=== PATIENT | male | born 1945 | race African-American/Black ===

== ENCOUNTER 2019-02-08 19:03 | Emergency (ER) | payer MEDICARE, MEDICAID ==
[~2019-02-08] VITALS: Ht 185.4 cm; Wt 100.0 kg
[~2019-02-08 19:03] MED LIST: CIPR-213 PO; CLON0.2T PO; ENAL20TA PO; LISI10TA5 PO; METH10OR11 PO; PANT40TA4 PO
[2019-02-08 21:33] VITALS: BP 174/90
== END 2019-02-08 21:37 | disposition home or self-care (01) ==
LOC: ER 19:03
DX: R51 Headache (principal); R10.9 Unspecified abdominal pain; R42 Dizziness and giddiness; I10 Essential (primary) hypertension; R53.83 Other fatigue; Z87.440 Personal history of urinary (tract) infections; Z79.899 Other long term (current) drug therapy
CPT/HCPCS: 99281

== ENCOUNTER 2019-06-06 17:53 | Emergency (ER) | payer MEDICARE, MEDICAID | END 2019-06-06 19:08 | disposition left against medical advice (07) | LOC: ER 17:53 | DX: Z53.21 Procedure and treatment not carried out due to patient leaving prior to being seen by health care provider (principal) ==

== ENCOUNTER 2019-11-07 09:54 | Emergency (ER) | payer MEDICARE, MEDICAID ==
[~2019-11-07] VITALS: Ht 188 cm; Wt 90.0 kg
[2019-11-07] MEDS ORDERED: IBUPROFEN 800MG TABLET PO ONE (12:30)
[2019-11-07] MEDS ORDERED: LIDOCAINE HCL 1% 20ML VIAL (Pyxis) INJ INFIL ONE (12:30)
[2019-11-07] MEDS ORDERED: ACETAMINOPHEN 500MG TABLET PO ONE (12:30)
[2019-11-07] MEDS ORDERED: TETANUS, DIPHTHERIA, PERTUSSIS VAC/PF 0.5ML (>7YR OLD) IM ONE (13:15)
[2019-11-07 13:34] VITALS: BP 117/74
== END 2019-11-07 13:35 | disposition home or self-care (01) ==
LOC: ER 09:54
DX: S91.205A Unspecified open wound of left lesser toe(s) with damage to nail, initial encounter (principal); G62.9 Polyneuropathy, unspecified; X58.XXXA Exposure to other specified factors, initial encounter; Y93.89 Activity, other specified; Y92.89 Other specified places as the place of occurrence of the external cause; Y99.8 Other external cause status; I10 Essential (primary) hypertension; Z87.440 Personal history of urinary (tract) infections; Z79.899 Other long term (current) drug therapy
CPT/HCPCS: 11730; 73660; 90471; 90715; 99284; J3490; 99283

== ENCOUNTER 2020-12-11 16:49 | Emergency (ER) | payer MEDICARE, MEDICAID ==
[~2020-12-11] VITALS: Ht 185.4 cm; Wt 100.0 kg
[~2020-12-11 16:49] MED LIST changes: -CIPR-213 PO; +CIPR500T5 PO; -ENAL20TA PO; +ENAL20TA18 PO; +LISI10TA26 PO; -LISI10TA5 PO; -PANT40TA4 PO; +PANT40TA51 PO
[2020-12-11] MEDS ORDERED: KETOROLAC 30MG/ML VIAL IV ONE (18:15)
[2020-12-11] MEDS ORDERED: MORPHINE SULFATE 4 MG/ML CPJ (NOT FOR IM USE) IV ONE ×2 (18:15→19:45)
[2020-12-11 18:42] LABS: BASOPHILS % 0.7 % (0.0-2.0); EOSINOPHILS % 0.5 % (0.0-5.0); HEMATOCRIT. 38.2 % (42.0-52.0); HEMOGLOBIN. 13.4 g/dL (14.0-18.0); LYMPHOCYTES % 11.9 % (20.0-50.0); MEAN CORPUSCULAR HEMOGLOBIN 31.2 pg (28.0-32.0); MEAN CORPUSCULAR VOLUME 88.8 fL (80.0-94.0); MEAN PLATELET VOLUME 7.2 fl (7.4-10.4); MONOCYTES % 9.5 % (2.0-8.0); NEUTROPHILS % 77.4 % (40.0-76.0); PLATELET 314 x1000/uL (130-400); RED CELL DISTRIBUTION WIDTH 12.9 % (11.6-14.6)
[2020-12-11 18:46] LABS: CHLORIDE 105 mEq/L (98-107)
[2020-12-11] MEDS ORDERED: PREG50CA MT ×2 (19:42→19:44)
[2020-12-11 20:35] VITALS: BP 151/74
== END 2020-12-11 20:56 | disposition home or self-care (01) ==
LOC: ER 17:41
DX: M79.605 Pain in left leg (principal); M79.604 Pain in right leg; R07.89 Other chest pain; I10 Essential (primary) hypertension
CPT/HCPCS: 36415; 71045; 80053; 83880; 84484; 85025; 93005; 93970; 96374; 96375; 96376; 99285; J1885; J2270

== ENCOUNTER 2021-07-03 15:27 | Inpatient (IN) | payer MEDICARE, MEDICAID ==
[~2021-07-03] VITALS: Ht 185.4 cm; Wt 99.8 kg
[~2021-07-03 15:27] MED LIST changes: +PREG50CA MT
[2021-07-03 16:21] LABS: BASOPHILS % 0.3 % (0.0-2.0); EOSINOPHILS % 0.5 % (0.0-5.0); HEMATOCRIT. 36.5 % (42.0-52.0); HEMOGLOBIN. 12.9 g/dL (14.0-18.0); LYMPHOCYTES % 13.7 % (20.0-50.0); MEAN CORPUSCULAR HEMOGLOBIN 30.1 pg (28.0-32.0); MEAN CORPUSCULAR VOLUME 85.4 fL (80.0-94.0); MEAN PLATELET VOLUME 7.3 fl (7.4-10.4); MONOCYTES % 14.1 % (2.0-8.0); NEUTROPHILS % 71.4 % (40.0-76.0); PLATELET 247 x1000/uL (130-400); RED BLOOD CELL COUNT 4.28 mill/uL (4.7-6.1); RED CELL DISTRIBUTION WIDTH 13.2 % (11.6-14.6)
[2021-07-03 16:25] LABS: CHLORIDE 104 mEq/L (98-107)
[2021-07-03] MEDS ORDERED: NITROGLYCERIN 0.4MG TABLET SL SL PRN (19:15)
[2021-07-03] MEDS ORDERED: CEFTRIAXONE 1 G PREMIX 50 ML IV ONE (19:15)
[2021-07-03] MEDS ORDERED: SULFAMETHOXAZOLE/TRIMETHOPRIM 800/160MG TABLET PO ONE (19:15)
[2021-07-03] MEDS ORDERED: ASPIRIN 81MG TABLET PO ONE (19:15)
[2021-07-03 19:38] LABS: CLARITY URINE CLOUDY (CLEAR); COLOR URINE YELLOW (YELLOW); KETONES URINE NEGATIVE (NEGATIVE); LEUKOCYTE ESTERASE URINE 3+ (NEGATIVE); NITRITE URINE NEGATIVE (NEGATIVE); OCCULT BLOOD URINE NEGATIVE (NEGATIVE); PH URINE 6.5 (4.5-8.0); PROTEIN URINE NEGATIVE (NEGATIVE); SPECIFIC GRAVITY URINE 1.015 (1.005-1.030)
[2021-07-03] MEDS ORDERED: SODIUM CHLORIDE 0.9% 1,000 ML IV ONE (21:15)
[2021-07-03] MEDS ORDERED: ONDANSETRON HCL 4MG/2ML INJ IV STA (21:24)
[2021-07-03] MEDS ORDERED: MORPHINE SULFATE 4 MG/ML CPJ (NOT FOR IM USE) IV STA (21:24)
[2021-07-03] MEDS ORDERED: CLONIDINE 0.2MG TABLET PO ONE (21:30)
[2021-07-03] MEDS ORDERED: IOHEXOL-350 100 ML BOTTLE ONE (23:30)
[2021-07-04] MEDS ORDERED: ENOXAPARIN 100MG/ML SYR SUBCUT ONE
[2021-07-04] MEDS ORDERED: CLONIDINE 0.1MG TABLET PO ONE (07:00)
[2021-07-04] MEDS ORDERED: ACETAMINOPHEN 325MG TABLET PO ONE (07:00)
[2021-07-04] MEDS ORDERED: ZOLPIDEM TARTRATE 5MG TABLET PO PRN (07:15)
[2021-07-04] MEDS ORDERED: ACETAMINOPHEN 325MG TABLET PO PRN (07:15)
[2021-07-04] MEDS ORDERED: HYDROMORPHONE HCL/PF 2MG/ML CPJ IV PRN (07:15)
[2021-07-04] MEDS ORDERED: ONDANSETRON HCL 4MG/2ML INJ IV PRN (07:15)
[2021-07-04] MEDS: PANTOPRAZOLE 40MG DR TABLET PO SCH (08:39)
[2021-07-04 09:00] VITALS: BP 131/78
[2021-07-04] MEDS: CLONIDINE 0.2MG TABLET PO SCH ×2 (09:00→21:00)
[2021-07-04] MEDS: PREGABALIN 50 MG CAPSULE PO SCH ×3 (09:50→17:26)
[2021-07-04] MEDS: METHADONE HCL 10MG TABLET PO SCH (09:51)
[2021-07-04] MEDS: LISINOPRIL 40MG TABLET PO SCH (09:52)
[2021-07-04 11:21] VITALS: BP 131/78
[2021-07-04 12:00] VITALS: BP 113/69
[2021-07-04] MEDS: DOCUSATE SODIUM 100MG CAPSULE PO PRN ×2 (12:38→17:31)
[2021-07-04] MEDS: CEPHALEXIN 250MG CAPSULE PO SCH ×3 (12:51→23:48)
[2021-07-04 16:00] VITALS: BP 111/62
[2021-07-04 20:00] VITALS: BP 126/58
[2021-07-04] MEDS ORDERED: ENOXAPARIN 40MG/0.4ML SYR SUBCUT SCH (21:00)
[2021-07-04] MEDS ORDERED: CEPH250C2 PO (21:00)
[2021-07-05] VITALS: BP 137/89
[2021-07-05] MEDS: PANTOPRAZOLE 40MG DR TABLET PO SCH (05:50)
[2021-07-05] MEDS: CEPHALEXIN 250MG CAPSULE PO SCH (05:50)
[2021-07-05] MEDS: CLONIDINE 0.2MG TABLET PO SCH (08:58)
[2021-07-05] MEDS: PREGABALIN 50 MG CAPSULE PO SCH (08:58)
[2021-07-05] MEDS: LISINOPRIL 40MG TABLET PO SCH (08:59)
[2021-07-05] MEDS: METHADONE HCL 10MG TABLET PO SCH (09:00)
[2021-07-05 11:37] VITALS: BP 153/100
== END 2021-07-05 12:10 | disposition home or self-care (01) | DRG 463 ==
LOC: ER 15:27 → MICUSO 21:18 → 6EST 07-04 09:20
PROVIDERS: ADMIT Internal Medicine Pulmonary Disease; ATTEND Internal Medicine Pulmonary Disease
DX: N39.0 Urinary tract infection, site not specified (principal); L97.919 Non-pressure chronic ulcer of unspecified part of right lower leg with unspecified severity; Z20.822 Contact with and (suspected) exposure to COVID-19; I10 Essential (primary) hypertension; Z96.659 Presence of unspecified artificial knee joint; Z72.0 Tobacco use
CPT/HCPCS: 36415; 71045; 71275; 80053; 81003; 82962; 83880; 84484; 85025; 85379; 87077; 87186; 87426; 93005; 93970; 99285; J0696; J1170; J1650; J2270; J2405; J7030; Q9967

== ENCOUNTER 2021-11-05 10:43 | Emergency (ER) | payer MEDICARE, MEDICAID ==
[~2021-11-05] VITALS: Ht 185.4 cm; Wt 100.0 kg
[~2021-11-05 10:43] MED LIST changes: +CEPH250C2 PO; -CIPR500T5 PO
[2021-11-05 12:09] LABS: BASOPHILS % 0.3 % (0.0-2.0); EOSINOPHILS % 0.6 % (0.0-5.0); HEMATOCRIT. 37.4 % (42.0-52.0); LYMPHOCYTES % 19.5 % (20.0-50.0); MEAN CORPUSCULAR HEMOGLOBIN 30.7 pg (28.0-32.0); MEAN CORPUSCULAR VOLUME 88.2 fL (80.0-94.0); MEAN PLATELET VOLUME 8.1 fl (7.4-10.4); MONOCYTES % 13.7 % (2.0-8.0); NEUTROPHILS % 65.9 % (40.0-76.0); PLATELET 184 x1000/uL (130-400); RED BLOOD CELL COUNT 4.24 mill/uL (4.7-6.1); RED CELL DISTRIBUTION WIDTH 13.2 % (11.6-14.6)
[2021-11-05 12:23] LABS: CHLORIDE 110 mEq/L (98-107)
[2021-11-05 13:00] VITALS: BP 137/77
[2021-11-05] MEDS ORDERED: CEPH250C2 PO ×2 (13:37)
[2021-11-05] MEDS ORDERED: CEPH500C2 MT (13:38)
[2021-11-05] MEDS ORDERED: FUROSEMIDE 40MG TABLET PO ONE (13:45)
[2021-11-05] MEDS ORDERED: CEPHALEXIN 250MG CAPSULE PO ONE (13:45)
== END 2021-11-05 14:10 | disposition home or self-care (01) ==
LOC: ER 10:43
DX: L03.116 Cellulitis of left lower limb (principal); L03.115 Cellulitis of right lower limb; Z79.899 Other long term (current) drug therapy; Z98.890 Other specified postprocedural states
CPT/HCPCS: 36415; 80048; 85025; 93970; 99284

== ENCOUNTER 2021-11-18 15:48 | Emergency (ER) | payer MEDICARE, MEDICAID ==
[~2021-11-18] VITALS: Ht 165.1 cm; Wt 91.0 kg
[~2021-11-18 15:48] MED LIST changes: -CEPH250C2 PO; +CEPH500C2 MT
[2021-11-18] MEDS ORDERED: FUROSEMIDE 20MG/2ML VIAL IVP ONE (17:30)
[2021-11-18] MEDS ORDERED: PIPERACILLIN/TAZ 3.375G PREMIX 50 ML IV ONE (17:30)
[2021-11-18] MEDS ORDERED: VANCOMYCIN 1G PREMIX 200 ML IV ONE (17:30)
[2021-11-18] MEDS ORDERED: DOXY100C5 MT (20:15)
[2021-11-18] MEDS ORDERED: MUPI1OIN4 TP (20:15)
[2021-11-18 20:22] VITALS: BP 140/80
== END 2021-11-18 20:26 | disposition left against medical advice (07) ==
LOC: ER 15:48 → EDBEDREQ 19:17 → CANRESERV 19:57 → ENRESERV 19:57 → ER 20:26 → CANBEDREQ 23:17
DX: I11.0 Hypertensive heart disease with heart failure (principal); I50.9 Heart failure, unspecified; E11.622 Type 2 diabetes mellitus with other skin ulcer; L97.829 Non-pressure chronic ulcer of other part of left lower leg with unspecified severity; L97.819 Non-pressure chronic ulcer of other part of right lower leg with unspecified severity; E11.628 Type 2 diabetes mellitus with other skin complications; L03.116 Cellulitis of left lower limb; L03.115 Cellulitis of right lower limb; Z85.9 Personal history of malignant neoplasm, unspecified; Z79.899 Other long term (current) drug therapy
CPT/HCPCS: 71045; 93923; 93970; 99284